=== PATIENT | female | born 1970 | race Caucasian/White ===

== ENCOUNTER → 2020-11-29 11:27 | Outpatient (CLI) | payer OTHER, SELFPAY ==
--- NOTE | 2020-11-29 11:50 | BRBX_PTH ---
PATIENT: MICHELET WHALEY LOC: [facility] U#:[id number] AGE/SX: 55/F ROOM: RE11/29/[address]: Dr. Lisette Salazar MD : [id number] BED: DIS: SPEC #: [id number] RECD: 11/29/20 12:20 STATUS: ELIA REMee #: [id number] DREW: 11/29/20 11:[address]: Lisette Salazar DEPT: SURGICAL PATHOLOGY RECD BY: Janet Arana ENTERED: 11/29/20 13:10 SP TYPE: BREAST BX OTHR DR: Dr. Albino Garcia MD Tissues: Right breast, NOS Procedures: Surgery Specimen Level IV HEADER OPERATION: Right stereotactic breast biopsy PRE-OP DIAGNOSIS: Right 12 o?clock middle depth breast density TISSUE SUBMITTED: Right breast core tissue ISCHEMIC TIME: 2 minutes FIXATION TIME: 7.5 hours MICROSCOPIC DIAGNOSIS Right breast, 12 o?clock, middle depth breast density, stereotactic core biopsy: Hyalinized fibroadenoma with fibrocystic changes and intraductal hyperplasia without atypia. Focal adenosis. Negative for atypia or malignancy. See comment. LAN:[email or web address] 11/30/2020 COMMENT Correlation with clinical, radiologic findings and appropriate follow up are necessary. MICROSCOPIC DESCRIPTION Slides are reviewed. GROSS DESCRIPTION Received in fixative is one container labeled with the patient name and designated right breast. The specimen consists of multiple elongated fragments of phillips-yellow fibroadipose tissue that in aggregate measure 5 x 3 x 0.3 cm. The entire specimen is submitted in two cassettes. / [email or web address] 11/29/2020 TC:1 CPT: 46519
--- NOTE | 2020-11-29 12:22 | PCM.OPRPT ---
Report of Operation Date of Procedure: 11/29/20 Pre-Operative Diagnosis: abnormal density seen on right breast mammograms Post-Operative Diagnosis: same Surgery/Procedure Performed:: right stereotactic breast biopsy Description of Surgical Findings:: nodular density with calcification seen on right breast mammograms - biopsied Surgeon: Lisette Salazar Type of Anesthesia: Local Specimen's removed: right breast tissue Estimated Blood Loss (mL): minimal Description of Procedure: After informed consent was given, the patient was brought into the Breast Biopsy suite. Appropriate time out protocol was followed. The patient was placed in the prone position on the stereotactic biopsy table. The patient?s right breast was then placed in the opening at the head of the biopsy table. A sintering plant supervisor compression mammogram was then obtained in the CC view. The suspicious radiological lesion was thus identified. Stereo pictures of the lesion were then taken for XYZ coordinates. The Mammotome biopsy stylus was then positioned where it would be entering into the patient?s breast. The skin at this site was then cleansed with a surgical skin preparation. The skin and subcutaneous tissues at this site were then infiltrated with 1% xylocaine. A small skin incision was made with an 11 blade scalpel. The biopsy stylus was then positioned into the patient?s breast at the proper coordinates of depth. Using the Mammotome vacuum-assist device, several core samples of breast tissue were obtained. A specimen mammogram was the obtained. It revealed that the abnormal calcification was within the specimen. I reviewed this personally and concluded that the tissue sampling was adequate. A hemostatic marker clip was then placed into the biopsy cavity and a sintering plant supervisor film revealed that it was properly deployed. The patient was then placed in the supine position and pressure was applied to the breast until no active bleeding was noted. Steristrips were applied to reapproximate the skin. A unilateral mammogram in the CC and MLO view were then taken which revealed that the marker clip was in the same area as the previous suspicious lesion. The patient tolerated the procedure well and was discharged from the Breast Biopsy suite in good condition. Complications none noted
== END ==
LOC: BIRAD 11:31
PROVIDERS: PCP Family Medicine; Referring Provider Surgery; Visit Provider Surgery
DX: D24.1 Benign neoplasm of right breast (principal); N60.11 Diffuse cystic mastopathy of right breast; N60.21 Fibroadenosis of right breast
CPT/HCPCS: 19081; 88305; J7050; A4648